=== PATIENT | male | born 1980 | race Caucasian/White ===

== ENCOUNTER 2017-03-22 22:43 | Emergency (ER) | payer SELFPAY ==
[2017-03-23 01:02] VITALS: BP 123/72
== END 2017-03-23 01:02 | disposition home or self-care (01) ==
LOC: ED 22:43
DX: S51.812A Laceration without foreign body of left forearm, initial encounter (principal); W45.8XXA Other foreign body or object entering through skin, initial encounter; Y93.89 Activity, other specified; Y92.89 Other specified places as the place of occurrence of the external cause; Y99.8 Other external cause status
CPT/HCPCS: J2001

== ENCOUNTER 2017-03-25 14:37 | Emergency (ER) | payer SELFPAY ==
[2017-03-25 17:38] VITALS: BP 151/98
== END 2017-03-25 17:38 | disposition home or self-care (01) ==
LOC: ED 14:37
DX: S51.812A Laceration without foreign body of left forearm, initial encounter (principal); X99.9XXA Assault by unspecified sharp object, initial encounter; Y93.89 Activity, other specified; Y92.89 Other specified places as the place of occurrence of the external cause; Y99.8 Other external cause status